=== PATIENT | female | born 1995 | race American Indian/Alaskan Native ===

== ENCOUNTER 2017-03-14 19:58 | Emergency (ER) | payer MEDICAID ==
--- NOTE | 2017-03-14 21:47 | Cat Scan Report ---
FINAL REPORT PROCEDURE: CT HEAD/BRAIN WO CON TECHNIQUE: Computerized tomography of the head was performed without contrast material. HISTORY: HEADACHE COMPARISON: No prior studies are available for comparison. FINDINGS: Brain: Brain density appears normal. No evidence of intracranial hemorrhage. No parenchymal hemorrhage, mass lesions or mass effect are seen. No abnormal extraxial fluid collects or masses are seen. Ventricles: Ventricles are normal size and are midline. Bone Windows: No evidence of skull fracture. Paranasal sinuses: Clear Mastoid air cells: Clear IMPRESSION: Negative examination
[2017-03-14 22:13] LABS: Basophils % (Auto) 0.3 % (0.0-1.8); Eosinophils % (Auto) 1.8 % (0.0-4.3); Hematocrit 41.4 % (30.3-42.9); Hemoglobin 13.8 gm/dl (10.1-14.3); Mean Corpuscular HGB Conc 33 % (30-34); Mean Corpuscular Hemoglobin 29 pg (28-32); Mean Corpuscular Volume 86 fl (79-97); Platelet Count 291 K/mm3 (140-440); Red Blood Count 4.82 M/mm3 (3.65-5.03); Red Cell Distribution Width 13.1 % (13.2-15.2)
[2017-03-14 22:22] LABS: Anion Gap 17 mmol/L; Blood Urea Nitrogen 7 mg/dL (7-17); Calcium 9.6 mg/dL (8.4-10.2); Carbon Dioxide 24 mmol/L (22-30); Glucose 76 mg/dL (65-100); Potassium 3.8 mmol/L (3.6-5.0); Sodium 140 mmol/L (137-145)
[2017-03-15] MEDS ORDERED: TYLENOL PO ONE (08:00)
--- NOTE | 2017-03-15 08:05 | Emergency Department Report ---
ED Headache HPI - General Chief Complaint: Headache Stated Complaint: HEADACHE Time Seen by Provider: 03/15/17 07:41 Source: patient - History of Present Illness Timing/Duration: other (3 weeks) Head Injury Location: frontal Recent Head Trauma: frequent headaches, chronic headaches Associated Symptoms: denies: confusion, fatigue, facial pain, fever/chills, flushing, loss of consciousness, nausea/vomiting, nasal congestion, nasal drainage, numbness in legs/feet, seizures, sinus infection, stiff neck Allergies/Adverse Reactions: Allergies No Known Allergies Allergy (Verified 03/14/17 20:56) Home Medications: Ambulatory Orders Acetaminophen [Acetaminophen TAB] 500 mg PO BID #10 tablet 03/15/17 ED Review of Systems ROS: Stated complaint: HEADACHE Other details as noted in HPI Constitutional: denies: chills, fever Eyes: denies: eye pain, eye discharge, vision change ENT: denies: ear pain, throat pain Respiratory: denies: cough, shortness of breath, wheezing Cardiovascular: denies: chest pain, palpitations Endocrine: no symptoms reported Gastrointestinal: denies: abdominal pain, nausea, diarrhea Genitourinary: denies: urgency, dysuria, discharge Musculoskeletal: denies: back pain, joint swelling, arthralgia Skin: denies: rash, lesions Neurological: denies: headache, weakness, paresthesias Psychiatric: denies: anxiety, depression Hematological/Lymphatic: denies: easy bleeding, easy bruising ED Past Medical Hx - Past Medical History Previous Medical History?: Yes Hx Seizures: Yes - Surgical History Past Surgical History?: No Additional Surgical History: GRAVES DISEASE - Social History Smoking Status: Never Smoker Substance Use Type: None - Medications Home Medications: Home Medications Medication Instructions Recorded Confirmed Last Taken Type Acetaminophen [Acetaminophen TAB] 500 mg PO BID #10 tablet 03/15/17 Unknown Rx ED Physical Exam - General Limitations: No Limitations General appearance: alert, in no apparent distress - Head Head exam: Present: atraumatic, normocephalic - Eye Eye exam: Present: normal appearance, PERRL, EOMI - ENT ENT exam: Present: normal exam, normal orophraynx, mucous membranes moist - Neck Neck exam: Present: normal inspection - Respiratory Respiratory exam: Present: normal lung sounds bilaterally. Absent: respiratory distress - Cardiovascular Cardiovascular Exam: Present: regular rate, normal rhythm. Absent: systolic murmur, diastolic murmur, rubs, gallop - GI/Abdominal GI/Abdominal exam: Present: soft, normal bowel sounds - Extremities Exam Extremities exam: Present: normal inspection - Back Exam Back exam: Present: normal inspection - Neurological Exam Neurological exam: Present: alert, oriented X3 - Psychiatric Psychiatric exam: Present: normal affect, normal mood - Skin Skin exam: Present: warm, dry, intact, normal color. Absent: rash ED Course Vital Signs 03/14/17 03/15/17 20:56 03:53 Temperature 99.1 F Pulse Rate 84 86 Respiratory 20 14 Rate Blood Pressure 113/76 116/80 O2 Sat by Pulse 100 100 Oximetry ED Medical Decision Making - Lab Data Result diagrams: 03/14/17 21:54 03/14/17 21:54 - Radiology Data Radiology results: report reviewed, image reviewed - Medical Decision Making patient doing well, minimal headache at this time, head ct ordered prior me evaluating the patient , not ordered by me either, will give tylenol and dc and follow up, neuro exam is non focal and well. no need for further testing , offered iv treatment but she prefers doing pills Critical care attestation.: If time is entered above; I have spent that time in minutes in the direct care of this critically ill patient, excluding procedure time. ED Disposition Clinical Impression: Headache Disposition: DC-01 TO HOME OR SELFCARE Is pt being admited?: No Does the pt Need Aspirin: No Condition: Good Instructions: Tension Headache (ED) Referrals: PRIMARY CARE, [Primary Care Provider] - 3-5 Days Time of Disposition: 08:05
[2017-03-15 08:22] VITALS: BP 110/80
== END 2017-03-15 08:33 | disposition home or self-care (01) ==
LOC: ED 19:58
DX: R51 Headache (principal); E05.00 Thyrotoxicosis with diffuse goiter without thyrotoxic crisis or storm
CPT/HCPCS: 36415; 70450; 80048; 84702; 85025

== ENCOUNTER 2020-12-10 23:20 | Inpatient (IN) | payer MEDICAID ==
[2020-12-11 00:29] LABS: Basophils % (Auto) 0.5 % (0.0-1.8); Eosinophils % (Auto) 0.4 % (0.0-4.3); Hematocrit 33.6 % (30.3-42.9); Hemoglobin 11.2 gm/dl (10.1-14.3); Lymphocytes # (Auto) 2.2 K/mm3 (1.2-5.4); Lymphocytes % (Auto) 26.1 % (13.4-35.0); Mean Corpuscular HGB Conc 33 % (30-34); Mean Corpuscular Volume 76 fl (79-97); Monocytes # (Auto) 0.8 K/mm3 (0.0-0.8); Platelet Count 237 K/mm3 (140-440); Red Blood Count 4.42 M/mm3 (3.65-5.03); Red Cell Distribution Width 15.8 % (13.2-15.2)
[2020-12-11] MEDS ORDERED: fentaNYL 100 MCG/2 ML INJ IV PRN (00:44)
[2020-12-11] MEDS ORDERED: LIDOCAINE (2%) 20 MG/1 ML VIAL 20 ML MDV INFILTRATI ONE (00:44)
[2020-12-11] MEDS ORDERED: MINERAL OIL 30 ML ORAL LIQD PO PRN (00:44)
[2020-12-11] MEDS ORDERED: TERBUTALINE 1 MG/1 ML INJ SUB-Q PRN (00:44)
[2020-12-11] MEDS ORDERED: ePHEDrine SULFATE 50 MG/1 ML INJ IV PRN (00:44)
[2020-12-11] MEDS ORDERED: LACTATED RINGERS 1,000 ML IV SCH (00:45)
[2020-12-11] MEDS ORDERED: OXYTOCIN DRIP 30 UNITS/500 ML BAG IV SCH ×2 (01:00)
--- NOTE | 2020-12-11 05:09 | History and Physical Report ---
History of Present Illness Date of examination: 12/11/20 Date of admission: 12/11/20 00:44 Chief complaint: leakage of fluid History of present illness: 25yo @ 39w1d presents with complains of spontaneous leakage of fluid occurring last pm roughly 2022. She denies persistent contractions or vaginal bleeding. +FM. She has no additional complaints. Past History Past Medical History: seizure Past Surgical History: D&C [employer]UNICATION[employer]AD History: gonorrhea, herpes Family/Genetic History: hypertension Social history: no significant social history - Obstetrical History Expected Date of Delivery: 12/18/20 Actual Gestation: 39 Week(s) 0 Day(s) : 3 Para: 1 Hx # Term Pregnancies: 1 Number of Pregnancies: 0 Spontaneous Abortions: 1 Number of Living Children: 1 #1 Gender: Male year: 2[age][birth year] Birthweight: 3.583 kg Method of Delivery: Vaginal Gestational age at delivery: 40 Complications: none Medications and Allergies Allergies Allergy/AdvReac Type Severity Reaction Status Date / Time No Known Allergies Allergy Verified 03/14/17 20:56 Home Medications Medication Instructions Recorded Confirmed Last Taken Type Valacyclovir HCl [Valacyclovir] 1,000 mg PO DAILY 12/11/20 12/11/20 12/10/20 History Active Meds: Active Medications Ephedrine Sulfate (Ephedrine Sulfate 50 Mg/1 Ml Inj) 10 mg IV Q2M PRN PRN Reason: Hypotension Fentanyl (Fentanyl 100 Mcg/2 Ml Inj) 100 mcg IV Q2H PRN PRN Reason: Pain,Severe (7-10) LABOR PAIN Oxytocin/Sodium Chloride (Pitocin/Ns 30 Unit/500ml) 30 units in 500 mls @ 2 mls/hr IV TITR JEREMIAH; Protocol Last Titration: 12/11/20 04:35 Dose: 6 ml/hr, 6 mls/hr Documented by: Lactated Ringer's (Lactated Ringers) 1,000 mls @ 125 mls/hr IV DIRECT JEREMIAH Oxytocin/Sodium Chloride (Pitocin/Ns 30 Unit/500ml) 30 units in 500 mls @ 40 mls/hr IV TITR JEREMIAH Mineral Oil (Mineral Oil 30 Ml Oral Liqd) 30 ml PO QHS PRN PRN Reason: Constipation Terbutaline Sulfate (Terbutaline 1 Mg/1 Ml Inj) 0.25 mg SUB-Q ONCE PRN PRN Reason: Hyperstimulation/Hypertonicity Review of Systems Cardiovascular: no chest pain Respiratory: no cough, no shortness of breath - Vital Signs Vital signs: Vital Signs Pulse BP Pulse Ox 115 H 132/82 99 12/10/20 23:36 12/10/20 23:36 12/10/20 23:36 Temp Pulse Resp BP Pulse Ox 97.9 F 97 H 18 116/69 99 12/11/20 03:00 12/11/20 01:01 12/11/20 03:00 12/11/20 01:01 12/11/20 00:41 - Physical Exam Breasts: Positive: deferred Cardiovascular: Regular rate Lungs: Positive: Clear to auscultation Abdomen: Positive: normal appearance Genitourinary (Female): Positive: normal external genitalia Vagina: Negative: ulceration Cervix: Negative: lesion Uterus: Positive: normal size Extremities: Positive: normal - Obstetrical FHR: category 1 FHR comments: 140s, moderate variability Uterine Contraction Frequency (min): q 1-3 Uterine Contraction Pattern: Regular Results Result Diagrams: 12/11/20 00:00 Abnormal lab results 12/10/20 12/11/20 Range/Units 23:40 00:00 MCV 76 L (79-97) fl MCH 25 L (28-32) pg RDW 15.8 H (13.2-15.2) % [place] % (Auto) 9.0 H (0.0-7.3) % Membranes Rupture Positive A (Negative) All other labs normal. Assessment and Plan Anticipate vaginal delivery - Patient Problems (1) SROM (spontaneous rupture of membranes) Current Visit: Yes Status: Acute Plan to address problem: -clear fluid/GBS negative -pitocin per protocol for AOL (2) Intrauterine Current Visit: Yes Status: Acute Plan to address problem: PNC: per [facility] -labs reviewed, on chart (3) Herpes infection during in third trimester Current Visit: Yes Status: Acute Plan to address problem: -patient reports compliance with valacyclovir -denies current outbreak or prodromal symptoms
--- NOTE | 2020-12-11 07:07 | Anesthesia Consultation ---
Anesthesia Consult and Med Hx Date of service: 12/11/20 - Airway Anesthetic Teeth Evaluation: Good ROM Head & Neck: Adequate Mental/Hyoid Distance: Adequate Mallampati Class: Class II Intubation Access Assessment: Probably Good - Pulmonary Exam CTA: Yes - Cardiac Exam Cardiac Exam: RRR - Pre-Operative Health Status ASA Pre-Surgery Classification: ASA2 Proposed Anesthetic Plan: Epidural - Pulmonary Hx Smoking: No Hx Asthma: No Hx Sleep Apnea: No - Cardiovascular System Hx Hypertension: No Hx Heart Attack/AMI: No Hx Angina: No - Central Nervous System Hx Seizures: Yes (Epileptic, last seizure 2017) Hx Psychiatric Problems: No - Gastrointestinal Hx Gastroesophageal Reflux Disease: No - Endocrine Hx Renal Disease: No Hx Insulin Dependent Diabetes: No Hx Non-Insulin Dependent Diabetes: No Hx Hypothyroidism: No Hx Hyperthyroidism: No - Hematic Hx Anemia: No Hx Sickle Cell Disease: No - Other Systems Hx Alcohol Use: No
[2020-12-11] MEDS ORDERED: NalbUPHINE 10 MG/1 ML INJ IV PRN (07:09)
[2020-12-11] MEDS ORDERED: diphenhydrAMINE 50 MG/ML VIAL IV PRN (07:09)
[2020-12-11] MEDS ORDERED: ONDANSETRON 4 MG/2 ML INJ IV PRN ×2 (07:09→09:57)
[2020-12-11] MEDS ORDERED: NALOXONE 2 MG/2 ML INJ IV PRN (07:09)
--- NOTE | 2020-12-11 07:09 | Progress Note ---
Labor Epidural - Labor Epidural Start Time: 06:34 Stop Time: 06:55 Performed by:: SAUL AGUIRRE ([facility]) Procedure: Patient is requesting epidural for labor and pain. H&P, labs were reviewed. Patient IDed, H&P reviewed, all questions and concerns were answered, and consent was signed. Timeout was performed at bedside. Patient in sitting position. Sterile prep and drape was performed. 3ml of 1% lidocaine skin wheal at L[3]- L [4]. 18-gauge Tuohy epidural needle was advanced to loss of resistance with air technique 8cm. Negative CSF negative blood. Epidural catheter advanced to [12] centimeters. [negative] Aspiration [negative] test dose. Sterile dressing applied. Patient tolerated procedure.
[2020-12-11] MEDS ORDERED: fentaNYL-BUPIV 2 MCG/ML-0.125% 200 MCG/100 ML BAG EPIDURAL SCH (08:00)
--- NOTE | 2020-12-11 09:56 | Procedure Note ---
OB Delivery Note - Delivery Date of Delivery: 12/11/20 Surgeon: ROBINSON PETERSON ([facility]) Estimated blood loss: 200cc - Vaginal Delivery presentation: vertex Delivery position: OA Intrapartum events: PROM->1hr before delivery Delivery induction: none Delivery augmentation: pitocin Delivery monitor: external FHT, external uterine Route of delivery: Delivery placenta: spontaneous Delivery cord: 3 umbilical vessels Episiotomy: none Delivery laceration: none Anesthesia: epidural Delivery comments: Excellent maternal effort progressed to of viable female at 0938. Head delivered OA, restituted ROT, shoulders followed with gentle traction. Infant to maternal abdomen, Apgars 8/9. Pitocin infusing. Placenta delivered sp ontaneously and intact at 0945. Cord blood collected. No lacerations noted. 7lb 7oz. Mother and infant bonding well. EBL 200cc. - Infant A at 1 minute: 8 at 5 minutes: 9 Gender: Female
[2020-12-11] MEDS ORDERED: PROMETHAZINE 25 MG TAB PO PRN (09:57)
[2020-12-11] MEDS ORDERED: MAGNESIUM HYDROXIDE (MOM) ORAL LIQD UDC PO PRN (09:57)
[2020-12-11] MEDS ORDERED: diphenhydrAMINE 25 MG CAP PO PRN (09:57)
[2020-12-11] MEDS ORDERED: LANOLIN/ZINC/DIMETHICONE (LANSINOH) 7 GM TP PRN (09:57)
[2020-12-11] MEDS ORDERED: PROMETHAZINE 25 MG RECT SUPP PR PRN (09:57)
[2020-12-11] MEDS ORDERED: WITCH HAZEL/ GLYCERIN PAD TP PRN (09:57)
[2020-12-11] MEDS: IBUPROFEN 600 MG TAB PO SCH ×3 (10:34→23:56)
[2020-12-11 21:09] LABS: Hematocrit 31.9 % (30.3-42.9); Hemoglobin 10.6 gm/dl (10.1-14.3)
[2020-12-11] MEDS ORDERED: oxyCODONE /ACETAMINOPHEN 5-325MG TAB PO ONE (21:33)
[2020-12-12] MEDS: IBUPROFEN 600 MG TAB PO SCH (06:36)
--- NOTE | 2020-12-12 09:20 | Post Anesthesia Evaluation ---
- Post Anesthesia Evaluation Patient Participated: Yes Airway Patent: Yes Stable Respiratory Function: Yes Nausea/Vomiting: No Temp > 96.8F: Yes Pain Manageable: Yes Adequeate Hydration: Yes Anesthesia Complications: No Block Receding Appropriately: Yes Patient on Ventilator: No
[2020-12-12] MEDS ORDERED: oxyCODONE /ACETAMINOPHEN 5-325MG TAB PO PRN (09:40)
--- NOTE | 2020-12-12 11:06 | Progress Note ---
Assessment and Plan A: PPD1 s/p Suspect UTI Vital signs stable, afebrile Mild anemia due to blood loss P: UA/UC stat Push PO fluids Closely monitor clinical status Subjective - Subjective Date of service: 12/12/20 Principal diagnosis: s/p Interval history: PPD1 s/p . Pt reports back pain mildly relieved by Percocet. "I feel like I'm in labor again." Reports some dysuria. Denies chills. Patient reports: appetite normal, voiding normally, pain poorly controlled, ambulating normally [place]: doing well, nursing well Objective - Vital Signs Latest vital signs: Vital Signs Temp Pulse Resp BP BP Pulse Ox 12/12/20 08:07 97.9 F 87 19 100 12/12/20 08:03 100/54 12/12/20 01:20 98.8 F 74 18 114/79 12/11/20 20:33 98.0 F 92 H 18 101/60 99 12/11/20 16:30 98.4 F 73 18 109/64 98 12/11/20 12:23 98.8 F 81 18 112/61 98 12/11/20 11:25 98.0 F 89 18 110/63 110/63 98 12/11/20 11:23 85 97 12/11/20 11:18 91 H 113/59 97 12/11/20 11:13 89 98 12/11/20 11:08 84 98 12/11/20 11:03 89 112/61 98 12/11/20 10:58 97 H 97 12/11/20 10:48 88 106/56 12/11/20 10:34 18 12/11/20 10:33 98.5 F 90 18 111/59 111/59 12/11/20 10:19 96 H 126/58 Intake and Output 12/11/20 12/12/20 12/12/20 22:59 07:59 15:59 Intake Total Output Total Balance Intake: Oral Intake, Free Water Output: Urine Void Other: Total, Intake Amount Total, Output Amount # Voids Void - Exam Narrative Exam: +CVA tenderness Abdomen: Present: soft. Absent: distention, tenderness, guarding Uterus: Present: firm, fundal height below umbilicus. Absent: bogginess, tenderness Extremities: Present: normal
[2020-12-12 12:07] LABS: Bilirubin,Urine NEG (Negative); Blood,Urine LG (Negative); Color,Urine Yellow (Yellow); Mucus,Urine 1+ /HPF; Urobilinogen,Urine < 2.0 mg/dL (<2.0)
[2020-12-12 12:08] LABS: RBC,Urine > 182.0 /HPF (0.0-6.0)
[2020-12-12] MEDS ORDERED: CYCLOBENZAPRINE 10 MG TAB PO PRN (13:08)
[2020-12-12] MEDS: IBUPROFEN 800 MG TAB PO PRN (20:52)
--- NOTE | 2020-12-12 23:17 | Discharge Summary ---
Providers - Providers Date of Admission: 12/11/20 00:44 Date of discharge: 12/13/20 Attending physician: WAYNE MCDONALD Primary care physician: WAYNE MCDONALD Hospitalization Reason for admission: active labor, rupture of membranes, IUP at term Delivery: Episiotomy: none Laceration: none complications: other (muscular back pain) Discharge diagnosis: IUP at term delivered baby: female Hospital course: Pt arrived with SROM and active labor and progressed to . She experienced back pain, relieved by Flexeril. Condition at discharge: Good Disposition: DC-01 TO HOME OR SELFCARE Plan - Discharge Medications Prescriptions: Ibuprofen [Motrin] 600 mg PO Q6H PRN #60 tablet PRN Reason: Pain - Provider Discharge Summary Activity: routine, no sex for 6 weeks, no heavy lifting 4 weeks, no strenuous exercise Diet: routine Instructions: routine Additional instructions: [] Smoking cessation referral if applicable(refer to patient education folder for contact #) [] Refer to [facility] Booklet Call your doctor immediately for: * Fever > 100.5 * Heavy vaginal bleeding ( >1 pad per hour) * Severe persistent headache * Shortness of breath * Reddened, hot, painful area to leg or breast * Drainage or odor from incision. * Keep incision clean and dry at all times and follow doctor's instructions regarding bathing/showering - Follow up plan Follow up: ROBINSON PETERSON CNM [Advanced Practice Nurse] - 14 Days (Please call office to schedule appointment in 2-4 weeks.)
[2020-12-13] MEDS: IBUPROFEN 800 MG TAB PO PRN (10:35)
[2020-12-13 13:36] VITALS: BP 115/71
== END 2020-12-13 13:30 | disposition home or self-care (01) | DRG 774 ==
LOC: TRG 23:20 → APU 23:28 → TRG 12-11 00:44 → LD 12-11 00:44 → OB 12-11 11:58
PROVIDERS: ADMIT Obstetrics & Gynecology; ATTEND Obstetrics & Gynecology
PROC: 10E0XZZ Delivery of Products of Conception, External Approach (ICD-10-PCS; principal; 2020-12-11)
PROC: 3E0R3BZ Introduction of Anesthetic Agent into Spinal Canal, Percutaneous Approach (ICD-10-PCS; 2020-12-11)
PROC: 00HU33Z Insertion of Infusion Device into Spinal Canal, Percutaneous Approach (ICD-10-PCS; 2020-12-11)
DX: O98.32 Other infections with a predominantly sexual mode of transmission complicating childbirth (principal); Z3A.39 39 weeks gestation of pregnancy; Z37.0 Single live birth; A60.09 Herpesviral infection of other urogenital tract; Z82.49 Family history of ischemic heart disease and other diseases of the circulatory system; O99.354 Diseases of the nervous system complicating childbirth; G40.802 Other epilepsy, not intractable, without status epilepticus; O90.81 Anemia of the puerperium; Z20.822 Contact with and (suspected) exposure to COVID-19; D64.9 Anemia, unspecified
CPT/HCPCS: 36415; 59025; 81001; 84112; 85014; 85018; 85025; 86592; 86850; 86900; 86901; 87086; G0378; J2590; J3010; U0003

== ENCOUNTER 2022-01-11 07:48 | Day surgery (SDC) | payer MEDICAID ==
--- NOTE | 2022-01-11 08:38 | History and Physical Report ---
History of Present Illness Date of examination: 01/11/22 Chief complaint: Undesired Fertility History of present illness: Pt is a 26 year old -[place] female who presents for surgical sterilization. She is aware of long acting reversible contraceptive methods and desires to proceed. 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 ) Family/Genetic History: hypertension Social history: no significant social history - Obstetrical History : 4 Para: 2 Hx # Term Pregnancies: 2 Number of Pregnancies: 0 Spontaneous Abortions: 1 Induced : 1 Number of Living Children: 2 Medications and Allergies Allergies Allergy/AdvReac Type Severity Reaction Status Date / Time No Known Allergies Allergy Verified 03/14/17 20:56 Home Medications Medication Instructions Recorded Confirmed Last Taken Type Airborne Elderberry Gummy 1 dose PO DAILY 01/04/22 01/04/22 Unknown History Apple Cider Vinegar 1 dose PO DAILY 01/04/22 01/04/22 Unknown History Vitamin C 500 mg PO DAILY 01/04/22 01/04/22 Unknown History Review of Systems All systems: negative - Physical Exam Breasts: Positive: deferred Cardiovascular: Regular rate Lungs: Positive: Clear to auscultation Abdomen: Positive: soft (obese ) Extremities: Positive: normal Results All other labs normal. Assessment and Plan A: Undesired Fertility Seizure Disorder Obesity P: Proceed with laparoscopic bilateral tubal ligation and other indicated procedures
[2022-01-11] MEDS ORDERED: ceFAZolin/Water 2 GM/20 ML 2 GM/20 ML SYRINGE IV ONE (08:40)
[2022-01-11] MEDS ORDERED: propofoL 200 MG/20 ML VIAL IV ONE (08:46)
[2022-01-11] MEDS ORDERED: ONDANSETRON 4 MG/2 ML INJ ONE (08:46)
[2022-01-11] MEDS ORDERED: LIDOCAINE MPF (2%) 20 MG/1 ML VIAL 5 ML ONE (08:46)
[2022-01-11] MEDS ORDERED: ROCURONIUM 50 MG/5 ML INJ IV ONE (08:46)
[2022-01-11] MEDS ORDERED: dexAMETHasone 20 MG/5 ML VIAL ONE (08:46)
[2022-01-11] MEDS ORDERED: fentaNYL 100 MCG/2 ML INJ ONE (08:46)
[2022-01-11] MEDS ORDERED: GLYCOPYRROLATE 0.4 MG/2 ML INJ ONE (08:47)
[2022-01-11] MEDS ORDERED: NEOSTIGMINE 10MG/10 ML INJ MDV ONE (08:47)
[2022-01-11] MEDS ORDERED: BUPIVACAINE/PF (0.5%) 5 MG/1 ML 30 ML VIAL INFILTRATI ONE ×2 (08:54→10:15)
[2022-01-11] MEDS ORDERED: ACETAMINOPHEN 500 MG TAB PO ONE (08:55)
[2022-01-11] MEDS ORDERED: MAGNESIUM OXIDE 400 MG TAB PO NR (08:55)
[2022-01-11] MEDS ORDERED: HYDROmorphone 1 MG/1 ML INJ IV PRN (08:56)
--- NOTE | 2022-01-11 08:57 | Anesthesia Day of Surgery ---
Anesthesia Day of Surgery - Day of Surgery Patient Examined: Yes Patient H&P Reviewed: Yes Patient is NPO: Yes
--- NOTE | 2022-01-11 08:57 | Anesthesia Consultation ---
Anesthesia Consult and Med Hx Date of service: 01/11/22 - Airway Anesthetic Teeth Evaluation: Good (Braces) - Pre-Operative Health Status ASA Pre-Surgery Classification: ASA2 Proposed Anesthetic Plan: General - Pulmonary Hx Smoking: No (SMOKES MARIJUANA 2XWEEK) Hx Asthma: No Hx Sleep Apnea: No - Cardiovascular System Hx Hypertension: No Hx Heart Attack/AMI: No Hx Angina: No - Central Nervous System Hx Seizures: Yes (Epileptic, last seizure 2018-DOES NOT TAKE MEDS) Hx Psychiatric Problems: Yes - Gastrointestinal Hx Gastroesophageal Reflux Disease: No - Endocrine Hx Renal Disease: No Hx Insulin Dependent Diabetes: No Hx Non-Insulin Dependent Diabetes: No Hx Hypothyroidism: No Hx Hyperthyroidism: No - Hematic Hx Anemia: No Hx Sickle Cell Disease: No - Other Systems Hx Alcohol Use: No Hx Substance Use: Yes (MARIJUANA 2XWEEK) Hx Cancer: No
[2022-01-11] MEDS ORDERED: LACTATED RINGERS 1,000 ML IV SCH (09:00)
[2022-01-11] MEDS ORDERED: MIDAZOLAM 2 MG/2 ML INJ IV NR (09:00)
[2022-01-11] MEDS ORDERED: CELECOXIB 200 MG CAP PO NR (09:00)
[2022-01-11] MEDS ORDERED: ceFAZolin/Water 2 GM/20 ML 2 GM/20 ML SYRINGE IV NR (09:00)
[2022-01-11 09:11] LABS: Hematocrit 37.8 % (30.3-42.9); Hemoglobin 12.2 gm/dl (10.1-14.3); Mean Corpuscular HGB Conc 32 % (30-34); Mean Corpuscular Volume 82 fl (79-97); Platelet Count 312 K/mm3 (140-440); Red Blood Count 4.63 M/mm3 (3.65-5.03)
[2022-01-11] MEDS ORDERED: MIDAZOLAM 2 MG/2 ML INJ ONE (09:28)
[2022-01-11] MEDS ORDERED: ONDANSETRON 4 MG/2 ML INJ IV PRN (09:30)
[2022-01-11] MEDS ORDERED: HYDROmorphone 1 MG/1 ML INJ ONE (10:11)
[2022-01-11] MEDS ORDERED: SODIUM CHLORIDE 0.9% IRR 1,500 ML BOTTLE IR ONE (10:15)
[2022-01-11] MEDS ORDERED: KETOROLAC 30 MG/1 ML INJ ONE (10:23)
[2022-01-11] MEDS ORDERED: SILVER NITRATE APPLICATOR 1 EA TP ONE (10:38)
--- NOTE | 2022-01-11 11:15 | Operative Report ---
Operative Report Operative Report: Date of procedure: January 11, 2022 Preoperative diagnosis: 1) Multiparity desires permanent sterilization 2 Obesity Postoperative diagnosis: Same Procedure: Laparoscopic Bilateral Tubal Ligation via Filshie clip method Surgeon: Vania Fagan M.D. Anesthesia: General Endotracheal Anesthesia Findings: 1) Boggy anteverted uterus 2) Normal appearing uterus, fallopian tubes and ovaries Estimated blood loss: 30 mL Urine output: 100 mL clear prior to the procedure Specimens: None Complications: None. Counts correct 2 Disposition: Stable to PACU Indications for procedure: This patient is a 26 year old who presents for surgical sterilization. She is aware of long acting reversible contraceptive methods but she desires to proceed. Operation in detail: After the risks, benefits, alternatives and complications of the procedure were explained to the patient, she gave informed consent for the procedure. She was subsequently taken to the operating room with her IV noted to be running well and placed in the dorsal supine position with sequential compression devices functioning. General endotracheal anesthesia was then induced without difficulty. An exam under anesthesia was then performed yielding a mobile anteverted uterus. The patient was then placed in placement dorsal lithotomy position and prepped and draped in normal sterile fashion. A timeout was then performed. The bladder was then drained of urine yielding 100 mL of clear urine. An open sided speculum was placed into the vagina for visualization of the cervix. A single-tooth tenaculum was placed on the anterior lip of the cervix for traction. A uterine manipulator was then placed. The speculum was then removed from the vagina. The surgeon's gloves were then changed. Attention was then turned to entry into the abdominal cavity. A 5 mm infraumbilical incision was made with an 11 blade. The skin was grasped on either side of the umbilicus with towel clips and tented up. The Veres needle was placed into the peritoneal cavity, confirmed with a saline drop test. The abdomen was then insufflated with CO2 gas to a pressure of 15 mmHg. A 5 mm Visiport trocar was then placed. An anatomic survey was then performed with findings as indicated above. A second trocar site was created 4 cm superior to the pubic symphysis in the midline measuring 8 mm. An 8 mm trocar was then placed under direct visualization. The patient was placed in the Trendelenburg position. The uterus was elevated, and two Filshie clips were then placed across the right and the left fallopian tubes. At this time, all instruments were removed from the abdominal cavity. The pneumoperitoneum was released. The trocars were removed atraumatically. The incisions were then infiltrated with half percent Marcaine. The incisions were then reapproximated with 4-0 Vicryl in a subcuticular fashion and then covered with skin glue. All instruments were then removed from the vagina, and a superficial laceration was noted on the left side of the cervix and was reapproximated to hemostasis with 3-0 Vicryl in a running locked fashion. At this time the procedure was ended. The patient was placed into the dorsal supine position and extubated without difficulty. She was subsequently taken to the PACU in stable condition. All instrument, needle and lap counts were correct 2.
--- NOTE | 2022-01-11 11:16 | Short Stay Summary ---
Short Stay Documentation Date of service: 01/11/22 - History H&P: dictated Social history: no significant social history - Allergies and Medications Current Medications: Allergies No Known Allergies Allergy (Verified 03/14/17 20:56) Home Medications Medication Instructions Recorded Confirmed Last Taken Type Airborne Elderberry Gummy 1 dose PO DAILY 01/04/22 01/04/22 Unknown History Apple Cider Vinegar 1 dose PO DAILY 01/04/22 01/04/22 Unknown History Vitamin C 500 mg PO DAILY 01/04/22 01/04/22 Unknown History Active Medications Celecoxib (Celecoxib 200 Mg Cap) 400 mg PO PREOP NR Stop: 01/11/22 13:00 Hydromorphone HCl (Hydromorphone 1 Mg/1 Ml Inj) 0.25 mg IV Q10MIN PRN PRN Reason: Pain, Moderate (4-6) Stop: 01/11/22 20:00 Hydromorphone HCl (Hydromorphone 1 Mg/1 Ml Inj) 0.5 mg IV Q10MIN PRN PRN Reason: Pain , Severe (7-10) Stop: 01/11/22 20:00 Lactated Ringer's (Lactated Ringers) 1,000 mls @ 75 mls/hr IV DIRECT JEREMIAH Cefazolin Sodium (Ancef/Sterile Water 2 Gm/20 Ml) 2 gm in 20 mls @ 80 mls/hr IV PREOP NR; Protocol Stop: 01/11/22 16:00 Magnesium Oxide (Magnesium Oxide 400 Mg Tab) 400 mg PO ONCE NR Stop: 01/11/22 12:00 Midazolam HCl (Midazolam 2 Mg/2 Ml Inj) 2 mg IV PREOP NR Stop: 01/11/22 23:59 Ondansetron HCl (Ondansetron 4 Mg/2 Ml Inj) 4 mg IV ONCE PRN PRN Reason: Nausea And Vomiting Stop: 01/11/22 13:00 - Physical exam Breasts: deferred - Brief post op/procedure progress note Date of procedure: 01/11/22 Pre-op diagnosis: Undesired fertility Post-op diagnosis: same Procedure: Laparoscopic Bilateral Tubal Ligation Anesthesia: GETA Findings: 1) Boggy anteverted uterus 2) Normal appearing uterus, fallopian tubes and ovaries Surgeon: HEATHER LANGSTON Estimated blood loss: minimal (30 mL) Pathology: none Condition: stable - Hospital course Hospital course: Pt underwent laparoscopic bilateral tubal ligation which she tolerated well. She was observed in the PACU until she met discharge criteria. She will follow up in 1 wk in the office. - Disposition Condition at discharge: Stable Disposition: 01 HOME / SELF CARE / HOMELESS - Discharge Diagnoses (1) Encounter for sterilization Status: Acute (2) Obesity (BMI 30.0-34.9) Status: Acute (3) Seizure disorder Status: Acute Short Stay Discharge Plan Activity: other (Nothing in vagina, no tub baths, no intercourse x 4 wks ) Weight Bearing Status: Full Weight Bearing Diet: regular Wound: keep clean and dry Follow up with: PRIMARY CAREMD [Primary Care Provider] - 7 Days HEATHER LANGSTON MD [Staff Physician] - 7 Days Prescriptions: Ibuprofen [Motrin] 800 mg PO Q8HR PRN #30 tablet PRN Reason: Pain, Moderate (4-6) oxyCODONE /ACETAMINOPHEN [Percocet 5/325] 1 tab PO Q6HR PRN #30 tablet PRN Reason: Pain , Severe (7-10)
[2022-01-11] MEDS ORDERED: MEPERIDINE 25 MG/1 ML INJ ONE (11:26)
[2022-01-11] MEDS ORDERED: ALBUTEROL 2.5 MG/3 ML NEBU IH SCH (11:30)
[2022-01-11] MEDS ORDERED: MEPERIDINE 25 MG/1 ML INJ IV PRN (11:30)
[2022-01-11] MEDS ORDERED: ALBUTEROL 2.5 MG/3 ML NEBU IH ONE (11:34)
[2022-01-11] MEDS: HYDROmorphone 1 MG/1 ML INJ IV PRN ×2 (11:49→11:59)
[2022-01-11] MEDS ORDERED: oxyCODONE /ACETAMINOPHEN 5-325MG TAB PO PRN (12:30)
[2022-01-11 12:32] VITALS: BP 122/79
--- NOTE | 2022-01-11 14:28 | Post Anesthesia Evaluation ---
- Post Anesthesia Evaluation Patient Participated: Yes Airway Patent: Yes Stable Respiratory Function: Yes Nausea/Vomiting: No Temp > 96.8F: Yes Pain Manageable: Yes Adequeate Hydration: Yes Anesthesia Complications: No Block Receding Appropriately: Not Applicable Patient on Ventilator: No
== END 2022-01-11 12:55 | disposition home or self-care (01) ==
LOC: OR 07:48
PROVIDERS: ATTEND Obstetrics & Gynecology
DX: Z30.2 Encounter for sterilization (principal); E66.9 Obesity, unspecified; G43.909 Migraine, unspecified, not intractable, without status migrainosus; K21.9 Gastro-esophageal reflux disease without esophagitis; F41.9 Anxiety disorder, unspecified; Z79.899 Other long term (current) drug therapy; Z98.890 Other specified postprocedural states; Z68.30 Body mass index [BMI] 30.0-30.9, adult; Z82.49 Family history of ischemic heart disease and other diseases of the circulatory system
CPT/HCPCS: 36415; 58671; 81025; 85027; J0690; J1100; J1170; J1815; J1885; J2175; J2250; J2405; J2704; J2710; J3010; J3490; J7120